=== PATIENT | male | born 1960 | race Caucasian/White ===

== ENCOUNTER 2018-05-01 19:13 | Emergency (ER) | payer OTHER ==
[2014-01-18 17:11] VITALS: Wt 122.5 kg
[~2018-05-01 19:13] MED LIST: ASP325 PO; ATOR20TA22 PO; CET10 PO; DILT300T11 PO; LEVO100T95 PO
--- NOTE | 2018-05-01 19:18 | ER Report ---
History and Physical Time Seen By MD: 19:18 HPI/ROS CHIEF COMPLAINT: sudden onset sinus congestion HISTORY OF PRESENT ILLNESS: This is a 57 year old male. He had sudden onset of sinus congestion tonight. Has been being treated for a sinus infection with 7 day course of Augmenting that he finished yesterday. He did have some itching and rash. Feels like his throat is swelling and his nose is plugged. Difficulty swallowing. Had itchy and watery eyes as well. Denies nausea or vomiting. No chest pain or tightness with this. Difficulty breathing through nose, but otherwise breathing is okay. No history of allergic reactions in the past, and unknown if other abnormal exposures other than working on hanging insulation in the garage this week without wearing respiratory protection. Allergies: Uncoded Allergies: hayfever (Allergy, Mild, UNKNOWN, 10/07/11) Home Meds Active Scripts Methylprednisolone (METHYLPREDNISOLONE) 4 Mg Tab.ds.pk, 4 MG PO DIRECTED, #1 PACK 0 Refills Prov:TYSON DE LEON MD 05/01/18 Reported Medications Hydrochlorothiazide (HYDROCHLOROTHIAZIDE) 25 Mg Tablet, PO QDAY, TAB 05/01/18 Diltiazem Hcl (Diltiazem 24HR Er) 300 Mg Tab.sr.24h, 300 MG PO DAILY 08/13/11 Levothyroxine Sodium (Levothyroxine Sodium) 100 Mcg Tablet, 100 MCG PO DAILY 08/13/11 Atorvastatin Calcium (Lipitor) 20 Mg Tablet, 20 MG PO DAILY, 0 Refills 11/13/10 Cetirizine Hcl (Zyrtec) 10 Mg Tab, 10 MG PO PRN, 0 Refills 11/13/10 Aspirin (Aspirin) 325 Mg Tab, 325 MG PO DAILY, 0 Refills 11/13/10 Reviewed Nurses Notes: Yes Constitutional Vital Sign - Last 24 Hours 05/01/18 05/01/18 05/01/18 05/01/18 19:13 19:17 19:17 19:28 Temp 97.4 Pulse ??? 69 60 Resp 16 B/P (MAP) 131/82 131/82 (98) Pulse Ox 89 94 O2 Delivery Room Air Nasal Cannula O2 Flow Rate 2 05/01/18 05/01/18 05/01/18 05/01/18 19:30 19:43 20:00 20:13 Pulse 63 57 B/P (MAP) 124/79 (94) 129/81 (97) Pulse Ox 93 92 O2 Delivery Nasal Cannula Nasal Cannula O2 Flow Rate 2 2 05/01/18 05/01/18 05/01/18 05/01/18 20:18 20:30 20:33 20:48 Pulse 56 57 57 B/P (MAP) 132/76 (94) Pulse Ox 93 96 91 O2 Delivery Nasal Cannula Nasal Cannula Nasal Cannula O2 Flow Rate 2 2 2 05/01/18 05/01/18 20:53 21:00 Pulse 58 B/P (MAP) 121/89 (100) Pulse Ox 93 O2 Delivery Room Air Physical Exam General Appearance: The patient is alert. Some anxiety and distress with the sudden changes. Eyes: Pupils are equal, round. No pallor, injection or icterus. ENT: Mucous membranes are moist. Normal oral mucosa. Posterior oropharynx shows thick post-nasal drainage. Uvula and soft palate mild swelling. Lips, tongue and posterior oropharynx are otherwise normal. Nasal mucosa with some erythema and mucous. Normal tympanic membranes and canals. Neck: Supple and non tender. No lymphadenopathy. Respiratory: Lungs are clear to auscultation. Cardiovascular: Regular rate and rhythm. No murmurs, gallops or rubs. Normal capillary refill. Neurological: Alert and oriented x3. No focal neurologic deficits Skin: Warm and dry. No rashes. DIFFERENTIAL DIAGNOSIS: After history and physical exam, differential diagnosis was considered for a patient with acute onset of decreased breathing in the nasal passages with some itching and rash. Could be allergic reaction to the antibiotic or the insulation material, or possibly something else. Also could be inflammation of the nasal passages for other reason. Incomplete and rebound of sinus infection is possible as well. Medical Decision Making Data Points Result Diagram: 05/01/18192105/01/181921 Laboratory Hematology Test 05/01/18 19:22 Red Blood Count 5.10 M/uL (4.00-5.60) Mean Corpuscular Volume 91.7 fL (80.0-96.0) Mean Corpuscular Hemoglobin 31.2 pg (26.0-33.0) Mean Corpuscular Hemoglobin Concent 34.0 g/dL (32.0-36.0) Red Cell Distribution Width 13.3 % (11.5-14.5) Mean Platelet Volume 8.1 fL (7.2-11.1) Neutrophils (%) (Auto) 60.9 % (39.4-72.5) Lymphocytes (%) (Auto) 32.4 % (17.6-49.6) Monocytes (%) (Auto) 4.3 % (4.1-12.4) Eosinophils (%) (Auto) 2.0 % (0.4-6.7) Basophils (%) (Auto) 0.4 % (0.3-1.4) Nucleated RBC Relative Count (auto) 0.1 /100WBC Neutrophils # (Auto) 4.0 K/uL (2.0-7.4) Lymphocytes # (Auto) 2.1 K/uL (1.3-3.6) Monocytes # (Auto) 0.3 K/uL (0.3-1.0) Eosinophils # (Auto) 0.1 K/uL (0.0-0.5) Basophils # (Auto) 0.0 K/uL (0.0-0.1) Nucleated RBC Absolute Count (auto) 0.01 K/uL Erythrocyte Sedimentation Rate 8 mm/HOUR (0-20) Sodium Level 138 mmol/L (137-145) Potassium Level 3.8 mmol/L (3.5-5.0) Chloride Level 104 mmol/L (98-107) Carbon Dioxide Level 26 mmol/L (22-30) Blood Urea Nitrogen 24 mg/dl (9-21) Creatinine 1.10 mg/dl (0.66-1.25) Glomerular Filtration Rate Calc > 60.0 Random Glucose 133 mg/dl (75-110) Calcium Level 8.7 mg/dl (8.4-10.2) Total Bilirubin 0.6 mg/dl (0.2-1.3) Aspartate Amino Transf (AST/SGOT) 33 U/L (0-35) Alanine Aminotransferase (ALT/SGPT) 44 U/L (0-56) Alkaline Phosphatase 112 U/L (0-126) C-Reactive Protein < 0.5 mg/dl (<1.0) Total Protein 7.0 g/dl (6.3-8.2) Albumin 3.8 g/dl (3.5-5.0) Chemistry Test 05/01/18 19:22 White Blood Count 6.5 k/uL (4.5-11.0) Red Blood Count 5.10 M/uL (4.00-5.60) Hemoglobin 15.9 g/dL (14.0-18.0) Hematocrit 46.7 % (42.0-52.0) Mean Corpuscular Volume 91.7 fL (80.0-96.0) Mean Corpuscular Hemoglobin 31.2 pg (26.0-33.0) Mean Corpuscular Hemoglobin Concent 34.0 g/dL (32.0-36.0) Red Cell Distribution Width 13.3 % (11.5-14.5) Platelet Count 202 K/uL (150-450) Mean Platelet Volume 8.1 fL (7.2-11.1) Neutrophils (%) (Auto) 60.9 % (39.4-72.5) Lymphocytes (%) (Auto) 32.4 % (17.6-49.6) Monocytes (%) (Auto) 4.3 % (4.1-12.4) Eosinophils (%) (Auto) 2.0 % (0.4-6.7) Basophils (%) (Auto) 0.4 % (0.3-1.4) Nucleated RBC Relative Count (auto) 0.1 /100WBC Neutrophils # (Auto) 4.0 K/uL (2.0-7.4) Lymphocytes # (Auto) 2.1 K/uL (1.3-3.6) Monocytes # (Auto) 0.3 K/uL (0.3-1.0) Eosinophils # (Auto) 0.1 K/uL (0.0-0.5) Basophils # (Auto) 0.0 K/uL (0.0-0.1) Nucleated RBC Absolute Count (auto) 0.01 K/uL Erythrocyte Sedimentation Rate 8 mm/HOUR (0-20) Glomerular Filtration Rate Calc > 60.0 Calcium Level 8.7 mg/dl (8.4-10.2) Total Bilirubin 0.6 mg/dl (0.2-1.3) Aspartate Amino Transf (AST/SGOT) 33 U/L (0-35) Alanine Aminotransferase (ALT/SGPT) 44 U/L (0-56) Alkaline Phosphatase 112 U/L (0-126) C-Reactive Protein < 0.5 mg/dl (<1.0) Total Protein 7.0 g/dl (6.3-8.2) Albumin 3.8 g/dl (3.5-5.0) EKG/Imaging Imaging CHEST PA AND LAT HISTORY: Difficulty breathing COMPARISON: None FINDINGS: Cardiomediastinal contours: Normal Lungs and pleura: Normal Bones/soft tissues: Normal Other findings: None significant IMPRESSION: 1. Normal chest Report Dictated By: Malcolm Holguin MD at 05/01/2018 8:10 PM Examination: SINUSES W/O CONTRAST Comparison: None. History: difficulty breathing Procedure: Multiplanar noncontrast paranasal sinus CT. One of the following dose optimization techniques was utilized in the performance of this exam: Automated exposure control; adjustment of the mA and/or kV according to the patient's size; or use of an iterative reconstruct ion technique. Specific details can be referenced in the facility's radiology CT exam operational policy. Findings: Mild mucosal inflammation within a right anterior ethmoid air cell and extending into the right frontal recess. This does result in mild narrowing of the frontal recess but there is no evidence of recess occlusion. Both frontal sinuses are well aerated. The left frontal recess is patent. The ethmoid air cells are otherwise unremarkable. The sphenoid sinuses are well aerated. Small mucous retention cyst along the floor of the left maxillary sinus. Otherwise, the left maxillary sinus is clear. There is no evidence of mucosal inflammation in the region of the ostiomeatal complex although a Saima air cell does result in moderate developmental narrowing of the ostiomeatal complex. Mild narrowing of the right ostiomeatal complex due to mucosal inflammation. The right maxillary sinus is otherwise well aerated. The mastoid air cells are unremarkable. Both middle ears cavities are well aerated. Mild leftward deviation the nasal septum with a small left-sided nasal septal spine. There is diffuse inflammation of the mucosa along the turbinates. Orbits and orbital contents are within normal limits. No mass effect in the visualized brain. No acute osseous abnormality. Temporomandibular joint alignment is within normal limits and symmetric. Craniocervical junction alignment is maintained. Mild degenerative change at C3-C4. IMPRESSION: As further detailed above, there is mild paranasal sinus and nasal passage mucosal inflammation but no evidence of paranasal sinus inflammatory fluid. Report Dictated By: Norberto Zimmerman MD at 05/01/2018 8:17 PM ED Course/Re-evaluation Clinical Indication for ER IV: Hydration, IV Access ED Course Started an IV. Used Solu-Medrol, Pepcid, and Benadryl. Sinus CT and chest x-ray obtained. Patient had nasal passage swelling, but not much sinus disease. Patient has no more itching after medications. He has continued this post-nasal drainage. Less swelling in uvula area. Everything else is still normal. Recommended continuation of oral steroids, Benadryl and Pepcid. Sinus rinses or nasal spray. Follow-up with Dr. Montaño, ENT, would be recommended. Decision to Disposition Date: May 01, 2018 Decision to Disposition Time: 20:48 Depart Departure Latest Vital Signs Vital Signs Date Time Temp Pulse Resp B/P (MAP) Pulse Ox O2 Delivery O2 Flow Rate FiO2 05/01/18 21:00 121/89 (100) 05/01/18 20:53 58 93 Room Air 05/01/18 20:48 2 05/01/18 19:17 97.4 16 Impression: Primary Impression: Congestion of paranasal sinus Additional Impression: Allergic reaction Condition: Improved Disposition: HOME OR SELF-CARE New Scripts Methylprednisolone (METHYLPREDNISOLONE) 4 Mg Tab.ds.pk 4 MG PO DIRECTED, #1 PACK 0 Refills Prov: TYSON DE LEON MD 05/01/18 Patient Instructions: Allergic Rhinitis (ED), General Allergic Reaction (ED) Additional Instructions: Nasal congestion with mild swelling in the nasal passages. Cannot entirely rule out allergic reaction. We feel it is more likely due to inflammation from placing the insulation without respiratory protection. Take the steroid pack, Medrol Dosepack, over the next 6 days starting tomorrow. Use a nasal spray or a nasal rinse kit. These are over the counter. You can start a nasal decongestant as well. Keep taking Benadryl 25mg one every 6 hours. Take Pepcid 20mg twice a day. Consider getting some Mucinex and increasing oral fluid intake. Consider seeing an content development specialist for further evaluation. (Dr. Noel Montaño here in the medical office building at the hospital). Problem Qualifiers Additional Impression: Allergic reaction Encounter type: initial encounter Qualified Codes: T78.40XA - Allergy, unspecified, initial encounter TYSON DE LEON MD May 01, 2018 19:18
[2018-05-01] MEDS ORDERED: HYDR-2966 PO (19:20)
[2018-05-01] MEDS ORDERED: methylPREDNIS SUCC 125 MG/2ML IVP ONE (19:30)
[2018-05-01] MEDS ORDERED: diphenhydrAMINE 50 MG/ML VIAL IVP ONE (19:30)
[2018-05-01] MEDS ORDERED: FAMOTIDINE(*) 20MG/50ML PREMIX 50 ML IVPB ONE (19:30)
[2018-05-01] MEDS ORDERED: NS(*) 0.9% 1000 ML BAG 1,000 ML IV ONE (19:32)
[2018-05-01 19:35] LABS: PLATELET COUNT, AUTOMATED 202 K/uL (150-450)
--- NOTE | 2018-05-01 20:15 | RADIOLOGY IMAGING REPORT ---
FACILITY: [facility] - [place] PATIENT NAME: Noel White : 1960 MR: [id number] V: [id number] EXAM DATE: ORDERING PHYSICIAN: TYSON DE LEON TECHNOLOGIST: Location: [facility] Patient: Noel White : 1960 Visit/Account:[id number] Date of Sevice: 05/01/2018 CHEST PA AND LAT HISTORY: Difficulty breathing COMPARISON: None FINDINGS: Cardiomediastinal contours: Normal Lungs and pleura: Normal Bones/soft tissues: Normal Other findings: None significant IMPRESSION: 1. Normal chest Report Dictated By: Malcolm Holguin MD at 05/01/2018 8:10 PM Report E-Signed By: Malcolm Holguin MD at 05/01/2018 8:11 PM WSN:[id number]
--- NOTE | 2018-05-01 20:28 | RADIOLOGY IMAGING REPORT ---
[place] [facility] [place] Noel [place] : 1960 MR: [id number] V: [id number] EXAM DATE: ORDERING PHYSICIAN: TYSON DE LEON TECHNOLOGIST: Location: [facility] [place] Patient: Noel White : 1960 Visit/Account:[id number] Date of Sevice: 05/01/2018 Examination: SINUSES W/O CONTRAST Comparison: None. History: difficulty breathing Procedure: Multiplanar noncontrast paranasal sinus CT. One of the following dose optimization techniques was utilized in the performance of this exam: Autom ated exposure control; adjustment of the mA and/or kV according to the patient's size; or use of an i terative reconstruction technique. Specific details can be referenced in the facility's radiology C T exam operational policy. Findings: Mild mucosal inflammation within a right anterior ethmoid air cell and extending into the r ight frontal recess. This does result in mild narrowing of the frontal recess but there is no eviden ce of recess occlusion. Both frontal sinuses are well aerated. The left frontal recess is patent. The ethmoid air cells are otherwise unremarkable. The sphenoid sinuses are well aerated. Small mucous retention cyst along the floor of the left maxillary sinus. Otherwise, the left maxilla ry sinus is clear. There is no evidence of mucosal inflammation in the region of the ostiomeatal com plex although a Saima air cell does result in moderate developmental narrowing of the ostiomeatal co mplex. Mild narrowing of the right ostiomeatal complex due to mucosal inflammation. The right maxillary sin us is otherwise well aerated. The mastoid air cells are unremarkable. Both middle ears cavities are well aerated. Mild leftward deviation the nasal septum with a small left-sided nasal septal spine. There is diffus e inflammation of the mucosa along the turbinates. Orbits and orbital contents are within normal limits. No mass effect in the visualized brain. No ac raine osseous abnormality. Temporomandibular joint alignment is within normal limits and symmetric. C raniocervical junction alignment is maintained. Mild degenerative change at C3-C4. IMPRESSION: As further detailed above, there is mild paranasal sinus and nasal passage mucosal inflammation but n o evidence of paranasal sinus inflammatory fluid. Report Dictated By: Norberto Zimmerman MD at 05/01/2018 8:17 PM Report E-Signed By: Norberto Zimmerman MD at 05/01/2018 8:25 PM WSN:[email or web address]
[2018-05-01] MEDS ORDERED: predniSONE 20 MG TAB PO ONE (20:50)
[2018-05-01] MEDS ORDERED: AMOX/CLAV 875 MG TAB PO ONE (20:50)
[2018-05-01] MEDS ORDERED: METH4TAB66 PO (20:57)
[2018-05-01 21:00] VITALS: BP 121/89
== END 2018-05-01 21:10 | disposition home or self-care (01) ==
LOC: ER 19:25
DX: R09.81 Nasal congestion (principal); T78.40XA Allergy, unspecified, initial encounter
CPT/HCPCS: 70486; 71046; 85025; 85651; 86140; 96374; 96375; 99284; J1200; J2930; J3490; J7030; J7512; 82040; 82247; 82310; 82374; 82435; 82565; 82947; 84075; 84132; 84155; 84295; 84450; 84460; 84520